=== PATIENT | female | born 1930 | race Caucasian/White ===

== ENCOUNTER 2020-01-13 09:05 | Inpatient (IN) ==
[2020-01-13 09:21] VITALS: BMI 23.0
[2020-01-13 10:06] LABS: BASOPHILS # (AUTO) 0.1 X10^3/uL (0.0-0.1); EOSINOPHILS # (AUTO) 0.1 x10^3/uL (0.0-0.2); EOSINOPHILS % (AUTO) 0.7 % (0.9-2.9); HEMATOCRIT 36.1 % (36.0-47.0); HEMOGLOBIN 11.7 g/dL (12.0-16.0); LYMPHOCYTES # (AUTO) 1.4 X10^3/uL (1.3-2.9); LYMPHOCYTES % (AUTO) 13.8 % (21.0-51.0); MEAN CORPUSCULAR HEMOGLOBIN 27.8 pg (27.0-34.0); MEAN CORPUSCULAR HGB CONC 32.4 g/dL (33.0-35.0); MEAN CORPUSCULAR VOLUME 85.6 fL (80.0-100.0); MONOCYTES # (AUTO) 0.8 x10^3/uL (0.3-0.8); NEUTROPHILS # (AUTO) 7.8 x10^3/uL (2.2-4.8); NEUTROPHILS % (AUTO) 76.5 % (42.0-75.0); PLATELET COUNT 227 X10^3/uL (150.0-450.0); RED BLOOD COUNT 4.22 X10^6/uL (3.5-5.4); RED CELL DISTRIBUTION WIDTH 14.9 % (11.6-16.5); WHITE BLOOD COUNT 10.1 X10^3/uL (3.6-10.0)
--- NOTE | 2020-01-13 10:14 | RAD ---
CHEST, 1 VIEWHISTORY: SOB, SORE THROAT, COUGH SINCE CARDIOVERSION YESTERDAYStudy: Single view of the chest.Comparison:NoneFindings:Cardiomegaly.Bilateral pulmonary vascular congestion with some asymmetr ic right-sided edema and trace bilateral effusions. Osseous structures demonstrate no acute abnormali ty.IMPRESSION:1. Cardiomegaly, edema and trace bilateral effusions.Electronically signed by: JANE RAM (Jan 13, 2020 10:13:39)
[2020-01-13 10:23] LABS: BLOOD UREA NITROGEN 21 mg/dL (7-18); CALCIUM 8.4 mg/dL (8.5-10.1); CARBON DIOXIDE 20.9 mmol/L (21-32); CHLORIDE 102 mmol/L (98-107); COR NA(FOR HYPERGLY) 135 mmol/L (136-145); CREATININE 1.09 mg/dL (0.55-1.02); SODIUM 135 mmol/L (136-145); TROPONIN I 0.33 ng/mL (0-1.5); eGFR NON BLACK RACES 50 (>60)
[2020-01-13 10:28] LABS: ALANINE AMINOTRANSFERASE 24 Units/L (12-78); ALBUMIN 3.2 g/dL (3.4-5.0); ALKALINE PHOSPHATASE 85 Units/L (46-116); ASPARTATE AMINO TRANSFERASE 23 Units/L (15-37); CKMB % 4.4 % (<4); CREATINE KINASE 70 Units/L (26-192); CREATINE KINASE MB 3.1 ng/mL (0-4.0); TOTAL PROTEIN 6.9 g/dL (6.4-8.2)
--- NOTE | 2020-01-13 10:39 | DR.SOBA ---
HPI Time Seen Time Seen by Provider: 01/13/20 09:40 Primary Care Physician Primary Care Physician: CELINA HPI Comment HPI Comment: PATIENT IS 89YR OLD FEMALE IN ER IN RESPIRATORY DISTRESS AND OXYGEN DESATURATION NOTED. SHE DID NOT SLEEP GOOD LAST NIGHT DUE TO RESPIRATORY DISTRESS. SHE IS WEAK. DENIES FEVER. COUGH IS SLIGHTLY PRODUCTIVE, CLEAR SPUTUM. REST OF HISTORY BELOW. THROAT PAIN IS SORENESS 7/10 AND RADIATES TO LOWER JAW. DENIES SIMILAR PAIN PREVIOUSLY. Complaints Chief Complaint Doctors Comments: INCREASING SOB, SORETHROAT, COUGHING, WEAKNESS SINCE YESTERDAY AFTER CARDIOVERSION FOR A FIB AND TRANS ESOPHAGIA ECHOCARDIOGRAM WAS DONE. SHE IS BEING COUGHING AND HAVING THROAT PAIN. SHE DID HAVE TUBE IN HER THROAT DURING PROCEDURE. Chief Complaint:: PT C/O SHORTNESS OF BREATH, SORE THROAT, WEAKNESS AND COUGHING THAT STARTED YESTERDAY AFTERNOON. PATIENT STATES SHE HAD A CARDIOVERSION DONE YESTERDAY AROUND 11AM AND THROUGHOUT THE AFTERNOON THE SYMPTOMS HAVE JUST BEGAN TO WORSEN. PT STAETS SHE HAS BEEN UP ALL NIGHT WITH THE SHORTNESS OF BREATH, SORE THROAT AND COUGHING. COVID-19 Coronavirus risk:travel/contact w/high risk person: No Has patient experienced Coronavirus symptoms: Yes Coronavirus symptoms experienced: Coughing and Shortness of Breath Reviewed Nurses Notes Reviewed: Yes Source History Provided: Patient Mode of Arrival Mode of Arrival: Wheelchair Timing Onset of Chief Complaint: 01/12/20 Duration Duration: Days Context Onset:: At Rest PE Risk Factors:: None History of:: None Prehospital Care:: O2 Modifying Factors Worsens:: Exertion and Lying Flat Improves:: Inhaler, Rest and Sitting Up Associated Signs and Symptoms Associated Signs and Symptoms: Cough, Nasal Congestion, Sore Throat and Chest Pain (TIGHTNESS.) If Chest Pain Quality: Other (SORENESS, TIGHTNESS.) Location: Substernal If Cough Cough: Nonproductive and White PMH PMH Past Medical History: Yes Past Medical History: Arthritis, Coronary Artery Disease, Dyslipidemia, GERD, Hypertension and Hypothyroidism Past Medical History Comment: AFIB, GI BLEED, Past Surgical History: Yes Surgical History: Angioplasty/Stents, CABG/Valve Surgery and Ortho Surgery Past Surgical History Comment: LTKA Family History History of Family Medical Conditions: No Social History Does any household member use tobacco: No Alcohol Use: None Do you use any recreational Drugs:: No Lives With: Alone Lives Where: Home Travel Risk Coronavirus risk:travel/contact w/high risk person: No Has patient experienced Coronavirus symptoms: Yes Coronavirus symptoms experienced: Coughing and Shortness of Breath Infectious screening In the last 2 months have you had wt loss of >10#?: NO Have you had fever, night sweats or hemotysis?: No Have you traveled outside the country in the last 6 months?: No Isolation: Droplet ROS Review of Systems Constitutional: See HPI, Weakness and Fatigue; negative Fever Eyes: No Symptoms Reported and See HPI; negative Blurred Vision and Diplopia ENTM: See HPI, Nose Discharge, Nose Congestion and Throat Pain; negative Ear Pain Respiratoy: See HPI, Productive Cough, Short of Breath and Wheezing Cardiovascular: See HPI, Chest Pain, Edema and Palpitations Gastrointestinal/Abdominal: No Symptoms Reported, See HPI and Food Intolerance; negative Abdominal Pain, Diarrhea, Nausea and Vomiting Genitourinary: No Symptoms Reported and See HPI; negative Dysuria, Frequency and Hematuria Neurological: See HPI, Headache, Weakness and Dizziness Musculoskeletal: See HPI, Back Pain and Muscle Pain Integumentary: See HPI and Dryness; negative Change in Color, Rash and Juandice Hematologic/Lymphatic: No Symptoms Reported and See HPI; negative Easy Bleeding, Easy Bruising and Swollen Glands Endocrine: No Symptoms Reported Psychiatric: No Symptoms Reported and See HPI All Other Systems: Reviewed and Negative PE Vital Signs Vitals: Temperature 98.4 F Pulse Rate [Left Radial] 106 Pulse Rate 79 Respiratory Rate 18 Blood Pressure [Left Arm] 141/74 Blood Pressure 133/81 O2 Sat by Pulse Oximetry 99 General Limitations: No Limitations General Appearance: Alert and In Distress Head Head Exam: Normal Inspection and Atraumatic Eyes Eye exam: Normal Appearance and PERRL; negative Scleral Icterus and Conjunctival Injection ENT ENT Exam: Normal External Ear Exam and TM's Normal Bilaterally; negative Normal Oropharynx Neck Neck Exam: Normal Inspection and Trachea Midline; negative Tenderness and Lymphadenopathy Chest Chest Inspection: Normal Inspection and Symmetric Chest Wall Rise; negative Tenderness Respiratory Respiratory Exam: Normal Lung Sounds Bilat and Chest Wall Tenderness; negative Accessory Muscle Use and Respiratory Distress Respiratory Exam: Bilateral: Wheezing and Bilateral: Rhonchi and Lower: Wheezing and Lower: Rhonchi Cardiovascular Cardiovascular Exam: Regular Rate, Normal Rhythm and Normal Heart Sounds; negative Systolic Murmur and Diastolic Murmur Abdominal Exam Abdominal Exam: Normal Inspection, Normal Bowel Sounds and Soft; negative Tenderness Extremities Extremities Exam: Normal Inspection and Normal Capillary Refill; negative Ten derness Back Back Exam: Normal Inspection; negative Tenderness, (R) CVA Tenderness and (L) CVA Tenderness Neurologic Neurological Exam: Alert, Oriented X3 and CN II-XII Intact; negative Motor Sensory Deficit Psychiatric Psychiatric Exam: Normal Affect and Normal Mood Skin Skin Exam: Dry MDM Differential Diagnosis Differential Diagnosis: Bronchitis, CHF, Dysrhythmia, Hyponatremia, Mycardial Infarction, Pneumonia, Pneumothorax, Respiratory Insufficiency and URI COURSE Treatment Treatment: SEE ORDERS. LASIX 40MG IV, AMIODARON 400MG PO, ELIQUIS 2.5MG PO AND ROCEPHIN 1GM IVPB IN ER. Reevaluation 1st: Improved (SOB IMPROVING.) Consultation Consultation Comments: DISCUSSED PATIENT WITH DR. ROMERO. HE WILL ADMIT PATIENT. 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 PROCEDURE DONE CAN ALTER CARDIAC ENZYMES. WILL NOT TRASFER PATIENT AT THIS TIME. Education/Counseling Education/Counseling: Patient Educated On: Diagnosis ROR Labs Reviewed Laboratory Results Reviewed?: Yes Result Diagrams: 01/16/20 05:55 01/16/20 19:30 Laboratory: 01/13/20 11:59 Urine,Clean Catch Urine Culture - Final WBC 7.9 X10^3/uL (3.6-10.0) 01/15/20 06:20 RBC 4.43 X10^6/uL (3.5-5.4) 01/15/20 06:20 Hgb 12.3 g/dL (12.0-16.0) 01/15/20 06:20 Hct 38.0 % (36.0-47.0) 01/15/20 06:20 MCV 85.8 fL (80.0-100.0) 01/15/20 06:20 MCH 27.8 pg (27.0-34.0) 01/15/20 06:20 MCHC 32.4 g/dL (33.0-35.0) L 01/15/20 06:20 RDW 14.9 % (11.6-16.5) 01/15/20 06:20 Plt Count 236 X10^3/uL (150.0-450.0) 01/15/20 06:20 MPV 8.2 fL (7.4-11.0) 01/15/20 06:20 Neut % (Auto) 53.3 % (42.0-75.0) 01/15/20 06:20 Lymph % (Auto) 27.1 % (21.0-51.0) 01/15/20 06:20 [place] % (Auto) 12.2 % (0.0-13.0) 01/15/20 06:20 Eos % (Auto) 6.3 % (0.9-2.9) H 01/15/20 06:20 Baso % (Auto) 1.1 % (0.2-1.0) H 01/15/20 06:20 Neut # (Auto) 4.2 x10^3/uL (2.2-4.8) 01/15/20 06:20 Lymph # (Auto) 2.1 X10^3/uL (1.3-2.9) 01/15/20 06:20 [place] # (Auto) 1.0 x10^3/uL (0.3-0.8) H 01/15/20 06:20 Eos # (Auto) 0.5 x10^3/uL (0.0-0.2) H 01/15/20 06:20 Baso # (Auto) 0.1 X10^3/uL (0.0-0.1) 01/15/20 06:20 Absolute Nucleated RBC 0.0 /100WBC 01/15/20 06:20 PT 17.3 SECONDS (11.8-14.3) 01/14/20 06:00 INR Target Range - 01/14/20 06:00 INR 1.46 (0.8-1.3) H 01/14/20 06:00 APTT 44.5 SECONDS (22.9-36.5) H 01/14/20 06:00 PTT Comment - 01/14/20 06:00 Sample Site Left brachial 01/13/20 10:11 ABG pH 7.450 (7.35-7.45) 01/13/20 10:11 ABG pCO2 30.0 mmHg (35.0-45.0) L 01/13/20 10:11 ABG pO2 74.0 mmHg (80.0-100.0) L 01/13/20 10:11 ABG HCO3 20.9 mmol/L (22-26) L 01/13/20 10:11 ABG O2 Saturation 95.0 % (90-100) 01/13/20 10:11 ABG Base Excess -2.2 mmol/L (-2.0-2.0) L 01/13/20 10:11 Himanshu Test Na 01/13/20 10:11 A-a Gradient 38.0 mmHg 01/13/20 10:11 FiO2 21.0 01/13/20 10:11 Blood Gas Comments Laurie well cb 01/13/20 10:11 Sodium 139 mmol/L (136-145) 01/15/20 06:20 Corrected Sodium TNP 01/15/20 06:20 Potassium 3.5 mmol/L (3.5-5.1) 01/15/20 06:20 Chloride 100 mmol/L (98-107) 01/15/20 06:20 Carbon Dioxide 27.6 mmol/L (21-32) 01/15/20 06:20 BUN 21 mg/dL (7-18) H 01/15/20 06:20 Creatinine 1.35 mg/dL (0.55-1.02) H 01/15/20 06:20 Est GFR (MDRD) Af Amer 48 (>60) L 01/15/20 06:20 Est GFR (MDRD) Non-Af 39 (>60) L 01/15/20 06:20 Glucose 105 mg/dL (65-99) H 01/15/20 06:20 Calcium 8.8 mg/dL (8.5-10.1) 01/15/20 06:20 Corrected Calcium TNP 01/15/20 06:20 Magnesium 1.6 mg/dL (1.7-2.9) L 01/15/20 06:20 Ferritin 44 ng/mL (8-252) 01/13/20 09:55 Total Bilirubin 0.60 mg/dL (0.2-1.0) 01/15/20 06:20 AST 23 Units/L (15-37) 01/15/20 06:20 ALT 26 Units/L (12-78) 01/15/20 06:20 Alkaline Phosphatase 89 Units/L (46-116) 01/15/20 06:20 Creatine Kinase 62 Units/L (26-192) 01/13/20 23:15 CK-MB (CK-2) 3.5 ng/mL (0-4.0) 01/13/20 23:15 CK/CKMB % Calc 5.7 % (<4) 01/13/20 23:15 Troponin I 0.06 ng/mL (0-1.5) 01/13/20 23:15 C-Reactive Protein 27.90 mg/L (0-3.0) H 01/13/20 09:55 Total Protein 7.7 g/dL (6.4-8.2) 01/15/20 06:20 Albumin 3.4 g/dL (3.4-5.0) 01/15/20 06:20 Globulin 4.3 g/dL (2.5-4.5) 01/15/20 06:20 Albumin/Globulin Ratio 0.8 Ratio (1.1-2.1) L 01/15/20 06:20 Specimen Type Clean catch urine 01/13/20 11:59 Urine Color Pale yellow (YELLOW) 01/13/20 11:59 Urine Appearance Slightly hazy (CLEAR) 01/13/20 11:59 Urine pH 6.0 (5.0 - 8.0) 01/13/20 11:59 Ur Specific [place] 1.010 (1.000-1.030) 01/13/20 11:59 Urine Protein Negative (NEGATIVE) 01/13/20 11:59 Urine Glucose (UA) Negative (NEGATIVE) 01/13/20 11:59 Urine Ketones Negative (NEGATIVE) 01/13/20 11:59 Urine Occult Blood Negative (NEGATIVE) 01/13/20 11:59 Urine Nitrite Negative (NEGATIVE) 01/13/20 11:59 Urine Bilirubin Negative (NEGATIVE) 01/13/20 11:59 Urine Urobilinogen Normal (NORMAL) 01/13/20 11:59 Ur Leukocyte Esterase 3+ (NEGATIVE) 01/13/20 11:59 Urine RBC 0-2 /HPF (0-3) 01/13/20 11:59 Urine WBC 10-20 /HPF (0-5) A 01/13/20 11:59 Ur Squamous Epith Cells Rare /HPF (NEGATIVE) 01/13/20 11:59 Urine Bacteria Trace /HPF (NEGATIVE) 01/13/20 11:59 Ur Culture Indicated? Yes/culture set up 01/13/20 11:59 SARS-CoV-2 (PCR) Negative (NEGATIVE) 01/13/20 12:20 XRAY XRAY Interpreted by: Radiologist (REPORT NOTED AND DISCUSSED WITH PATIENT AND FAMILY.) and Self (AGREE WITH REPORT.) EKG Rate: 83 Advance: Normal Rhythm: PACs Block: None Hypertrophy: None ST: Nonsp Opioid Opioid Risk Tool Age (Odell box if 16-45): No History of Preadolescent Sexual Abuse: No Total: 0 Total Score Risk Category: Low Risk Copyright: [facility] predicting aberrant behaviors Diagnosis Discharge Problem: Elevated troponin, Acute respiratory distress CHF (congestive heart failure) Qualifiers: Heart failure type: unspecified Heart failure chronicity: acute on chronic Qualified Code(s): I50.9 - Heart failure, unspecified Pulmonary edema Qualifiers: Chronicity: acute Qualified Code(s): J81.0 - Acute pulmonary edema UTI (urinary tract infection) Qualifiers: Urinary tract infection type: site unspecified Hematuria presence: with hematuria Qualified Code(s): N39.0 - Urinary tract infection, site not specified Instructions Instructions: Fall Prevention in the Home, Adult, Gkce-nw-[id number] Transesophageal Echocardiogram, [id number] Cardiac-Specific Troponin I and T Test Hypertension, Noha-hy-Gfya Heart Failure, Hgqq-[id number] Pulmonary Edema, Ntky-[id number] Forms: Precautions for COVID19 Patient Portal Social Distancing
[2020-01-13] MEDS ORDERED: LASIX IVP ONE ×2 (10:41→10:50)
[2020-01-13 10:59] LABS: ABG BASE EXCESS -2.2 mmol/L (-2.0-2.0); ABG HCO3 20.9 mmol/L (22-26)
[2020-01-13] MEDS ORDERED: CORDARONE INJ 150 MG VIAL IVP ONE (11:32)
[2020-01-13] MEDS ORDERED: ELIQUIS PO ONE (11:37)
[2020-01-13] MEDS ORDERED: CORDARONE TAB 200 MG PO ONE (11:37)
[2020-01-13 12:08] LABS: BILIRUBIN,URINE NEGATIVE (NEGATIVE); BLOOD/HEMOGLOBIN,URINE NEGATIVE (NEGATIVE); GLUCOSE, URINE NEGATIVE (NEGATIVE); KETONES,URINE NEGATIVE (NEGATIVE); LEUKOCYTE ESTERASE ,URINE 3+ (NEGATIVE); NITRITES,URINE NEGATIVE (NEGATIVE); PROTEIN,URINE NEGATIVE (NEGATIVE); UROBILINOGEN,URINE NORMAL (NORMAL)
[2020-01-13 12:16] LABS: APPEARANCE,URINE SLIGHTLY HAZY (CLEAR); COLOR,URINE PALE YELLOW (YELLOW)
[2020-01-13 12:17] LABS: BACTERIA,URINE TRACE /HPF (NEGATIVE); RBC,URINE 0-2 /HPF (0-3); SQUAMOUS EPITHELIAL CELL,UR RARE /HPF (NEGATIVE)
[2020-01-13] MEDS ORDERED: ROCEPHIN VIAL 1 GRAM IV ONE (12:49)
[2020-01-13 13:38] LABS: CKMB % 4.2 % (<4); CREATINE KINASE MB 3.6 ng/mL (0-4.0); TROPONIN I 0.36 ng/mL (0-1.5)
[2020-01-13] MEDS ORDERED: ROCEPHIN VIAL 1 GRAM ONE (14:37)
[2020-01-13] MEDS ORDERED: NS 100 ML IV 100 ML IV ONE (14:37)
[2020-01-13] MEDS: ROCEPHIN VIAL 1 GRAM 1 G in NS 100 ML IV + SPIKE MINIBAG* 100 ML IV SCH (14:59)
[2020-01-13] MEDS ORDERED: RESTORIL CAP 15 MG PO PRN (16:33)
[2020-01-14 00:20] LABS: CKMB % 5.7 % (<4); CREATINE KINASE MB 3.5 ng/mL (0-4.0); TROPONIN I 0.06 ng/mL (0-1.5)
[2020-01-14 06:29] LABS: BASOPHILS # (AUTO) 0.1 X10^3/uL (0.0-0.1); BASOPHILS % (AUTO) 1.3 % (0.2-1.0); EOSINOPHILS # (AUTO) 0.4 x10^3/uL (0.0-0.2); HEMATOCRIT 34.6 % (36.0-47.0); HEMOGLOBIN 11.2 g/dL (12.0-16.0); LYMPHOCYTES # (AUTO) 1.7 X10^3/uL (1.3-2.9); LYMPHOCYTES % (AUTO) 25.8 % (21.0-51.0); MEAN CORPUSCULAR HEMOGLOBIN 27.5 pg (27.0-34.0); MEAN CORPUSCULAR HGB CONC 32.2 g/dL (33.0-35.0); MEAN CORPUSCULAR VOLUME 85.4 fL (80.0-100.0); MEAN PLATELET VOLUME 8.2 fL (7.4-11.0); MONOCYTES # (AUTO) 0.7 x10^3/uL (0.3-0.8); MONOCYTES % (AUTO) 10.4 % (0.0-13.0); NEUTROPHILS # (AUTO) 3.7 x10^3/uL (2.2-4.8); NEUTROPHILS % (AUTO) 56.5 % (42.0-75.0); PLATELET COUNT 204 X10^3/uL (150.0-450.0); RED BLOOD COUNT 4.06 X10^6/uL (3.5-5.4); RED CELL DISTRIBUTION WIDTH 14.9 % (11.6-16.5); WHITE BLOOD COUNT 6.6 X10^3/uL (3.6-10.0)
[2020-01-14 06:49] LABS: ALANINE AMINOTRANSFERASE 25 Units/L (12-78); ALBUMIN 3.1 g/dL (3.4-5.0); ALKALINE PHOSPHATASE 79 Units/L (46-116); ASPARTATE AMINO TRANSFERASE 19 Units/L (15-37); BLOOD UREA NITROGEN 20 mg/dL (7-18); CALCIUM 8.6 mg/dL (8.5-10.1); CARBON DIOXIDE 27.4 mmol/L (21-32); CHLORIDE 105 mmol/L (98-107); COR CA(FOR HYPOALB) 9.3 mg/dL (8.5-10.1); CREATININE 1.27 mg/dL (0.55-1.02); MAGNESIUM 1.7 mg/dL (1.7-2.9); SODIUM 141 mmol/L (136-145); TOTAL PROTEIN 6.8 g/dL (6.4-8.2); eGFR NON BLACK RACES 42 (>60)
[2020-01-14] MEDS ORDERED: NS 500 ML IV 500 ML IV ONE (08:47)
[2020-01-14] MEDS ORDERED: LASIX IVP SCH (09:25)
[2020-01-14] MEDS: CORDARONE TAB 200 MG PO SCH (09:48)
[2020-01-14] MEDS: ROCEPHIN VIAL 1 GRAM 1 G in NS 100 ML IV + SPIKE MINIBAG* 100 ML IV SCH (09:49)
[2020-01-14] MEDS: LASIX IVP SCH ×2 (09:51→18:26)
--- NOTE | 2020-01-14 10:56 | RAD ---
HISTORYCHFSTUDYCHEST, 1 VIEWCOMPARISONOne-view chest January 13, 2020FINDINGSThe trachea is midline. The cardiac silhouette is enlarged but stable in size. The vascular congestion and central interstitial edema has improved when compared to the last film January 12. There is minimal residual interstitial edema in the lung bases. The bony thorax is unremarkable.IMPRESSIONCardiomegaly status post sternotomy stable compared to yesterdays film but there is been significant improvement in the vascular congestion and interstitial edema compared to yesterdays film.Electronically signed by: THEODORE AUSTIN (Jan 14, 2020 10:55:56)
[2020-01-14] MEDS: ELIQUIS PO SCH ×2 (11:05→20:33)
[2020-01-14] MEDS: RHINOCORT ALLERGY NASAL SPRAY ENOSTRIL SCH (11:05)
[2020-01-15 06:38] LABS: BASOPHILS # (AUTO) 0.1 X10^3/uL (0.0-0.1); BASOPHILS % (AUTO) 1.1 % (0.2-1.0); EOSINOPHILS # (AUTO) 0.5 x10^3/uL (0.0-0.2); EOSINOPHILS % (AUTO) 6.3 % (0.9-2.9); HEMOGLOBIN 12.3 g/dL (12.0-16.0); LYMPHOCYTES # (AUTO) 2.1 X10^3/uL (1.3-2.9); LYMPHOCYTES % (AUTO) 27.1 % (21.0-51.0); MEAN CORPUSCULAR HEMOGLOBIN 27.8 pg (27.0-34.0); MEAN CORPUSCULAR HGB CONC 32.4 g/dL (33.0-35.0); MEAN CORPUSCULAR VOLUME 85.8 fL (80.0-100.0); MEAN PLATELET VOLUME 8.2 fL (7.4-11.0); MONOCYTES % (AUTO) 12.2 % (0.0-13.0); NEUTROPHILS # (AUTO) 4.2 x10^3/uL (2.2-4.8); NEUTROPHILS % (AUTO) 53.3 % (42.0-75.0); PLATELET COUNT 236 X10^3/uL (150.0-450.0); RED BLOOD COUNT 4.43 X10^6/uL (3.5-5.4); RED CELL DISTRIBUTION WIDTH 14.9 % (11.6-16.5); WHITE BLOOD COUNT 7.9 X10^3/uL (3.6-10.0)
[2020-01-15 06:58] LABS: ALANINE AMINOTRANSFERASE 26 Units/L (12-78); ALBUMIN 3.4 g/dL (3.4-5.0); ALKALINE PHOSPHATASE 89 Units/L (46-116); ASPARTATE AMINO TRANSFERASE 23 Units/L (15-37); BLOOD UREA NITROGEN 21 mg/dL (7-18); CALCIUM 8.8 mg/dL (8.5-10.1); CARBON DIOXIDE 27.6 mmol/L (21-32); CHLORIDE 100 mmol/L (98-107); CREATININE 1.35 mg/dL (0.55-1.02); SODIUM 139 mmol/L (136-145); TOTAL PROTEIN 7.7 g/dL (6.4-8.2); eGFR NON BLACK RACES 39 (>60)
--- NOTE | 2020-01-15 07:30 | RAD ---
HISTORYCHF respiratory distressSTUDYPortable AP [id number] stable cardiac enlargement with sternal wires. The lungs are now essentially clear with only slight residual vascular congestion. There is no new segmental or lobar consolidation or recurrent pulmonary edema.IMPRESSIONAdditional improvement in pulmonary aeration. No new abnormality noted.Electronically signed by: DIAMANTE DONATO (Jan 15, 2020 07:29:14)
[2020-01-15] MEDS: CORDARONE TAB 200 MG PO SCH (09:19)
[2020-01-15] MEDS: ELIQUIS PO SCH ×2 (09:20→21:16)
[2020-01-15] MEDS ORDERED: LOPRESSOR INJ 5 MG AMP IVP ONE (09:26)
[2020-01-15] MEDS ORDERED: LOPRESSOR INJ 5 MG AMP ONE (09:28)
[2020-01-15] MEDS: ROCEPHIN VIAL 1 GRAM 1 G in NS 100 ML IV + SPIKE MINIBAG* 100 ML IV SCH (09:31)
[2020-01-15] MEDS: LASIX IVP SCH (09:31)
[2020-01-15] MEDS: RHINOCORT ALLERGY NASAL SPRAY ENOSTRIL SCH (09:39)
[2020-01-15] MEDS ORDERED: ATIVAN TAB 0.5 MG PO ONE (10:04)
[2020-01-15] MEDS ORDERED: ATIVAN TAB 0.5 MG ONE (10:11)
--- NOTE | 2020-01-15 10:28 | PCM.PROG ---
Progress Note Progress Note for Day of Date of Exam: 01/15/20 Subjective Subjective: Pt is a 89 yo f pmhx CABGx3(1983), Atrial fibrillation, Hypothyroidism, admitted for CHF exacerbation. Yesterday she was given lasix and had good urinary output with significant improvement in respiratory status and CXR show significant improvement in aeration. Echo:EF 61%, moderate mitral r egurg. Plan was for possible discharge, however she began having an uncomfortable feeling in her chest and felt palpitations. Ekg ordered that showed atrial fibrillation. She had not received her morning amiodarone dose and was given that along with IV metoprolol 5mg. Magnesium level was low, will r eplete per protocol. Home medications restarted included synthroid and atenolol. Labs/imaging:Wbc 7.8, Hgb 12.3, Plt 236, Na 139, K 3.5, Cr 1.35, Gluc 105. Will continue to monitor and follow up labs/imaging in the morning. Past Medical Family Social History Past Med/Fam/Surg Hx: No changes since H&P Allergies: Allergies nickel Allergy (Verified 01/12/20 11:35) silver Allergy (Verified 01/12/20 11:35) Review of Systems ROS: No change since H&P Vital Signs and I&O's Vital Signs: Temperature 97.7 F Pulse Rate [Left Radial] 75 Pulse Rate 79 Respiratory Rate 20 Blood Pressure [Left Arm] 132/75 Blood Pressure 133/81 O2 Sat by Pulse Oximetry 98 Intake and Output: Intake & Output 01/12/20 01/13/20 01/14/20 01/15/20 23:59 23:59 23:59 23:59 Intake Total 310 / 310 1250 / 1250 70 / 70 Output Total 700 / 700 Balance -390 / -390 1250 / 1250 70 / 70 Physical Exam Oriented: Normal Eyes: Normal Ear: Normal Nose: Normal Throat: Normal Respiratory: Normal Cardiovascular: Tachycardia and Irregular Auscultation: Bowel Sounds: Normal Palpation: Normal Tenderness: Normal Skin: Normal Musculoskeletal: Normal Psychiatric: Anxiety Speech Pattern: Clear and Appropriate Laboratory and Diagnostics Result Diagrams: 01/15/20 06:20 01/15/20 06:20 Labs: 01/13/20 11:59 Urine,Clean Catch Urine Culture - Final Laboratory WBC 7.9 X10^3/uL (3.6-10.0) 01/15/20 06:20 RBC 4.43 X10^6/uL (3.5-5.4) 01/15/20 06:20 Hgb 12.3 g/dL (12.0-16.0) 01/15/20 06:20 Hct 38.0 % (36.0-47.0) 01/15/20 06:20 MCV 85.8 fL (80.0-100.0) 01/15/20 06:20 MCH 27.8 pg (27.0-34.0) 01/15/20 06:20 MCHC 32.4 g/dL (33.0-35.0) L 01/15/20: RDW 14.9 % (11.6-16.5) 01/15/20 06:20 Plt Count 236 X10^3/uL (150.0-450.0) 01/15/20 06:20 MPV 8.2 fL (7.4-11.0) 01/15/20 06:20 Neut % (Auto) 53.3 % (42.0-75.0) 01/15/20 06:20 Lymph % (Auto) 27.1 % (21.0-51.0) 01/15/20 06:20 [place] % (Auto) 12.2 % (0.0-13.0) 01/15/20 06:20 Eos % (Auto) 6.3 % (0.9-2.9) H 01/15/20 06:20 Baso % (Auto) 1.1 % (0.2-1.0) H 01/15/20 06:20 Neut # (Auto) 4.2 x10^3/uL (2.2-4.8) 01/15/20 06:20 Lymph # (Auto) 2.1 X10^3/uL (1.3-2.9) 01/15/20 06:20 [place] # (Auto) 1.0 x10^3/uL (0.3-0.8) H 01/15/20 06:20 Eos # (Auto) 0.5 x10^3/uL (0.0-0.2) H 01/15/20 06:20 Baso # (Auto) 0.1 X10^3/uL (0.0-0.1) 01/15/20 06:20 Absolute Nucleated RBC 0.0 /100WBC 01/15/20 06:20 PT 17.3 SECONDS (11.8-14.3) 01/14/20 06:00 INR Target Range - 01/14/20 06:00 INR 1.46 (0.8-1.3) H 01/14/20 06:00 APTT 44.5 SECONDS (22.9-36.5) H 01/14/20 06:00 PTT Comment - 01/14/20 06:00 Sample Site Left brachial 01/13/20 10:11 ABG pH 7.450 (7.35-7.45) 01/13/20 10:11 ABG pCO2 30.0 mmHg (35.0-45.0) L 01/13/20 10:11 ABG pO2 74.0 mmHg (80.0-100.0) L 01/13/20 10:11 ABG HCO3 20.9 mmol/L (22-26) L 01/13/20 10:11 ABG O2 Saturation 95.0 % (90-100) 01/13/20 10:11 ABG Base Excess -2.2 mmol/L (-2.0-2.0) L 01/13/20 10:11 Himanshu Test Na 01/13/20 10:11 A-a Gradient 38.0 mmHg 01/13/20 10:11 FiO2 21.0 01/13/20 10:11 Blood Gas Comments Laurie well cb 01/13/20 10:11 Sodium 139 mmol/L (136-145) 01/15/20 06:20 Corrected Sodium TNP 01/15/20 06:20 Potassium 3.5 mmol/L (3.5-5.1) 01/15/20 06:20 Chloride 100 mmol/L (98-107) 01/15/20 06:20 Carbon Dioxide 27.6 mmol/L (21-32) 01/15/20 06:20 BUN 21 mg/dL (7-18) H 01/15/20 06:20 Creatinine 1.35 mg/dL (0.55-1.02) H 01/15/20 06:20 Est GFR (MDRD) Af Amer 48 (>60) L 01/15/20 06:20 Est GFR (MDRD) Non-Af 39 (>60) L 01/15/20 06:20 Glucose 105 mg/dL (65-99) H 01/15/20 06:20 Calcium 8.8 mg/dL (8.5-10.1) 01/15/20 06:20 Corrected Calcium TNP 01/15/20 06:20 Magnesium 1.6 mg/dL (1.7-2.9) L 01/15/20 06:20 Ferritin 44 ng/mL (8-252) 01/13/20 09:55 Total Bilirubin 0.60 mg/dL (0.2-1.0) 01/15/20 06:20 AST 23 Units/L (15-37) 01/15/20 06:20 ALT 26 Units/L (12-78) 01/15/20 06:20 Alkaline Phosphatase 89 Units/L (46-116) 01/15/20 06:20 Creatine Kinase 62 Units/L (26-192) 01/13/20 23:15 CK-MB (CK-2) 3.5 ng/mL (0-4.0) 01/13/20 23:15 CK/CKMB % Calc 5.7 % (<4) 01/13/20 23:15 Troponin I 0.06 ng/mL (0-1.5) 01/13/20 23:15 C-Reactive Protein 27.90 mg/L (0-3.0) H 01/13/20 09:55 Total Protein 7.7 g/dL (6.4-8.2) 01/15/20 06:20 Albumin 3.4 g/dL (3.4-5.0) 01/15/20 06:20 Globulin 4.3 g/dL (2.5-4.5) 01/15/20 06:20 Albumin/Globulin Ratio 0.8 Ratio (1.1-2.1) L 01/15/20 06:20 Specimen Type Clean catch urine 01/13/20 11:59 Urine Color Pale yellow (YELLOW) 01/13/20 11:59 Urine Appearance Slightly hazy (CLEAR) 01/13/20 11:59 Urine pH 6.0 (5.0 - 8.0) 01/13/20 11:59 Ur Specific [place] 1.010 (1.000-1.030) 01/13/20 11:59 Urine Protein Negative (NEGATIVE) 01/13/20 11:59 Urine Glucose (UA) Negative (NEGATIVE) 01/13/20 11:59 Urine Ketones Negative (NEGATIVE) 01/13/20 11:59 Urine Occult Blood Negative (NEGATIVE) 01/13/20 11:59 Urine Nitrite Negative (NEGATIVE) 01/13/20 11:59 Urine Bilirubin Negative (NEGATIVE) 01/13/20 11:59 Urine Urobilinogen Normal (NORMAL) 01/13/20 11:59 Ur Leukocyte Esterase 3+ (NEGATIVE) 01/13/20 11:59 Urine RBC 0-2 /HPF (0-3) 01/13/20 11:59 Urine WBC 10-20 /HPF (0-5) A 01/13/20 11:59 Ur Squamous Epith Cells Rare /HPF (NEGATIVE) 01/13/20 11:59 Urine Bacteria Trace /HPF (NEGATIVE) 01/13/20 11:59 Ur Culture Indicated? Yes/culture set up 01/13/20 11:59 SARS-CoV-2 (PCR) Negative (NEGATIVE) 01/13/20 12:20 Plan (1) CHF (congestive heart failure): Status: Acute Qualifiers: Heart failure chronicity: acute on chronic Heart failure type: unspecified Qualified Code(s): I50.9 - Heart failure, unspecified (2) Pulmonary edema: Status: Acute Qualifiers: Chronicity: acute Qualified Code(s): J81.0 - Acute pulmonary edema
[2020-01-15] MEDS ORDERED: TENORMIN PO SCH (11:00)
[2020-01-15] MEDS ORDERED: ATIVAN TAB 0.5 MG PO SCH (11:00)
[2020-01-15] MEDS ORDERED: MAGNESIUM SULFATE 1 GRAM/100 mL PREMIX 1 GM/100 ML BAG IV PRN (11:47)
[2020-01-15] MEDS: SYNTHROID 50 mcg TAB PO SCH (14:15)
[2020-01-15] MEDS ORDERED: K-RIDER 10 MEQ/NS 100 ML 10 MEQ/100 ML BAG IV PRN (20:33)
[2020-01-15] MEDS ORDERED: KLOR-CON PO PRN (20:33)
[2020-01-15] MEDS ORDERED: POTASSIUM CHLORIDE LIQ 20 MEQ UDC PO PRN (20:33)
[2020-01-15] MEDS ORDERED: K-DUR TAB 20 MEQ PO PRN (20:33)
[2020-01-15] MEDS ORDERED: POTASSIUM CHL 60 MEQ/NS 0.45% 500 ML IV PRN (20:33)
[2020-01-15] MEDS ORDERED: POTASSIUM CHL 40 MEQ/NS 0.45% 500 ML IV PRN (20:33)
[2020-01-15] MEDS ORDERED: MICRO K EXTEN CAP 10 MEQ PO PRN (20:33)
[2020-01-15] MEDS: ATIVAN TAB 0.5 MG PO PRN (21:18)
[2020-01-16 06:23] LABS: BASOPHILS # (AUTO) 0.1 X10^3/uL (0.0-0.1); BASOPHILS % (AUTO) 1.1 % (0.2-1.0); EOSINOPHILS # (AUTO) 0.5 x10^3/uL (0.0-0.2); EOSINOPHILS % (AUTO) 7.9 % (0.9-2.9); HEMATOCRIT 37.3 % (36.0-47.0); HEMOGLOBIN 12.1 g/dL (12.0-16.0); LYMPHOCYTES # (AUTO) 1.7 X10^3/uL (1.3-2.9); LYMPHOCYTES % (AUTO) 29.6 % (21.0-51.0); MEAN CORPUSCULAR HEMOGLOBIN 27.7 pg (27.0-34.0); MEAN CORPUSCULAR HGB CONC 32.4 g/dL (33.0-35.0); MEAN CORPUSCULAR VOLUME 85.5 fL (80.0-100.0); MEAN PLATELET VOLUME 8.3 fL (7.4-11.0); MONOCYTES # (AUTO) 0.6 x10^3/uL (0.3-0.8); MONOCYTES % (AUTO) 10.2 % (0.0-13.0); NEUTROPHILS % (AUTO) 51.2 % (42.0-75.0); PLATELET COUNT 229 X10^3/uL (150.0-450.0); RED BLOOD COUNT 4.37 X10^6/uL (3.5-5.4); RED CELL DISTRIBUTION WIDTH 14.7 % (11.6-16.5); WHITE BLOOD COUNT 5.9 X10^3/uL (3.6-10.0)
[2020-01-16 06:51] LABS: ALANINE AMINOTRANSFERASE 21 Units/L (12-78); ALKALINE PHOSPHATASE 82 Units/L (46-116); ASPARTATE AMINO TRANSFERASE 20 Units/L (15-37); BLOOD UREA NITROGEN 21 mg/dL (7-18); CALCIUM 8.8 mg/dL (8.5-10.1); CARBON DIOXIDE 27.6 mmol/L (21-32); CHLORIDE 100 mmol/L (98-107); COR CA(FOR HYPOALB) 9.6 mg/dL (8.5-10.1); CREATININE 1.15 mg/dL (0.55-1.02); MAGNESIUM 2.6 mg/dL (1.7-2.9); SODIUM 136 mmol/L (136-145); eGFR NON BLACK RACES 47 (>60)
[2020-01-16] MEDS: LASIX PO SCH (09:21)
[2020-01-16] MEDS: ELIQUIS PO SCH ×2 (09:21→20:48)
[2020-01-16] MEDS: SYNTHROID 50 mcg TAB PO SCH (09:21)
[2020-01-16] MEDS: LOPRESSOR TAB 25 MG PO SCH ×2 (09:21→20:49)
[2020-01-16] MEDS: CORDARONE TAB 200 MG PO SCH (09:22)
[2020-01-16] MEDS: RHINOCORT ALLERGY NASAL SPRAY ENOSTRIL SCH (09:23)
--- NOTE | 2020-01-16 10:31 | PCM.PROG ---
Progress Note Progress Note for Day of Date of Exam: 01/16/20 Subjective Subjective: Pt is a 89 yo f pmhx CABGx3(1983), Atrial fibrillation, Hypothyroidism, admitted for CHF exacerbation. Yesterday, she had Afib w/ RVR on Ekg, felt chest discomfort and palpitations. Her home medications were restarted and she states it has helped but still has some palpitations. Her heart rate is fluctuating on telemetry this morning. Will stop her atenolol and change her to metoprolol tart 12.5mg BID. She is otherwise doing well and if rate controlled can likely be discharged soon. Labs/imaging:Wbc 5.9, Hgb 12.1, Plt 229, Na 136, K 3.3, Cr 1.15, Gluc 104. Mag 2.6. Will continue to monitor and follow up labs/imaging in the morning. Past Medical Family Social History Past Med/Fam/Surg Hx: No changes since H&P Allergies: Allergies nickel Allergy (Verified 01/12/20 11:35) silver Allergy (Verified 01/12/20 11:35) Review of Systems ROS: No change since H&P Vital Signs and I&O's Vital Signs: Temperature 98.1 F Pulse Rate [Left Radial] 93 Pulse Rate 79 Respiratory Rate 20 Blood Pressure [Left Arm] 122/85 Blood Pressure 133/81 O2 Sat by Pulse Oximetry 98 Intake and Output: Intake & Output 01/13/20 01/14/20 01/15/20 01/16/20 23:59 23:59 23:59 23:59 Intake Total 310 / 310 1250 / 1250 1340 / 1340 320 / 320 Output Total 700 / 700 Balance -390 / -390 1250 / 1250 1340 / 1340 320 / 320 Physical Exam Oriented: Normal Eyes: Normal Ear: Normal Nose: Normal Throat: Normal Respiratory: Normal Cardiovascular: Tachycardia and Irregular Auscultation: Bowel Sounds: Normal Tenderness: Normal Skin: Normal Musculoskeletal: Normal Psychiatric: Anxiety Speech Pattern: Clear and Appropriate Laboratory and Diagnostics Result Diagrams: 01/16/20 05:55 01/16/20 05:55 Labs: 01/13/20 11:59 Urine,Clean Catch Urine Culture - Final Laboratory WBC 5.9 X10^3/uL (3.6-10.0) 01/16/20 05:55 RBC 4.37 X10^6/uL (3.5-5.4) 01/16/20 05:55 Hgb 12.1 g/dL (12.0-16.0) 01/16/20 05:55 Hct 37.3 % (36.0-47.0) 01/16/20 05:55 MCV 85.5 fL (80.0-100.0) 01/16/20 05:55 MCH 27.7 pg (27.0-34.0) 01/16/20 05:55 MCHC 32.4 g/dL (33.0-35.0) L 01/16/20 05:55 RDW 14.7 % (11.6-16.5) 01/16/20 05:55 Plt Count 229 X10^3/uL (150.0-450.0) 01/16/20 05:55 MPV 8.3 fL (7.4-11.0) 01/16/20 05:55 Neut % (Auto) 51.2 % (42.0-75.0) 01/16/20 05:55 Lymph % (Auto) 29.6 % (21.0-51.0) 01/16/20 05:55 [place] % (Auto) 10.2 % (0.0-13.0) 01/16/20 05:55 Eos % (Auto) 7.9 % (0.9-2.9) H 01/16/20 05:55 Baso % (Auto) 1.1 % (0.2-1.0) H 01/16/20 05:55 Neut # (Auto) 3.0 x10^3/uL (2.2-4.8) 01/16/20 05:55 Lymph # (Auto) 1.7 X10^3/uL (1.3-2.9) 01/16/20 05:55 [place] # (Auto) 0.6 x10^3/uL (0.3-0.8) 01/16/20 05:55 Eos # (Auto) 0.5 x10^3/uL (0.0-0.2) H 01/16/20 05:55 Baso # (Auto) 0.1 X10^3/uL (0.0-0.1) 01/16/20 05:55 Absolute Nucleated RBC 0.1 /100WBC 01/16/20 05:55 PT 17.3 SECONDS (11.8-14.3) 01/14/20 06:00 INR Target Range - 01/14/20 06:00 INR 1.46 (0.8-1.3) H 01/14/20 06:00 APTT 44.5 SECONDS (22.9-36.5) H 01/14/20 06:00 PTT Comment - 01/14/20 06:00 Sample Site Left brachial 01/13/20 10:11 ABG pH 7.450 (7.35-7.45) 01/13/20 10:11 ABG pCO2 30.0 mmHg (35.0-45.0) L 01/13/20 10:11 ABG pO2 74.0 mmHg (80.0-100.0) L 01/13/20 10:11 ABG HCO3 20.9 mmol/L (22-26) L 01/13/20 10:11 ABG O2 Saturation 95.0 % (90-100) 01/13/20 10:11 ABG Base Excess -2.2 mmol/L (-2.0-2.0) L 01/13/20 10:11 Himanshu Test Na 01/13/20 10:11 A-a Gradient 38.0 mmHg 01/13/20 10:11 FiO2 21.0 01/13/20 10:11 Blood Gas Comments Laurie well cb 01/13/20 10:11 Sodium 136 mmol/L (136-145) 01/16/20 05:55 Corrected Sodium TNP 01/16/20 05:55 Potassium 3.3 mmol/L (3.5-5.1) L 01/16/20 05:55 Chloride 100 mmol/L (98-107) 01/16/20 05:55 Carbon Dioxide 27.6 mmol/L (21-32) 01/16/20 05:55 BUN 21 mg/dL (7-18) H 01/16/20 05:55 Creatinine 1.15 mg/dL (0.55-1.02) H 01/16/20 05:55 Est GFR (MDRD) Af Amer 57 (>60) L 01/16/20 05:55 Est GFR (MDRD) Non-Af 47 (>60) L 01/16/20 05:55 Glucose 104 mg/dL (65-99) H 01/16/20 05:55 Calcium 8.8 mg/dL (8.5-10.1) 01/16/20 05:55 Corrected Calcium 9.6 mg/dL (8.5-10.1) 01/16/20 05:55 Magnesium 2.6 mg/dL (1.7-2.9) 01/16/20 05:55 Ferritin 44 ng/mL (8-252) 01/13/20 09:55 Total Bilirubin 0.40 mg/dL (0.2-1.0) 01/16/20 05:55 AST 20 Units/L (15-37) 01/16/20 05:55 ALT 21 Units/L (12-78) 01/16/20 05:55 Alkaline Phosphatase 82 Units/L (46-116) 01/16/20 05:55 Creatine Kinase 62 Units/L (26-192) 01/13/20 23:15 CK-MB (CK-2) 3.5 ng/mL (0-4.0) 01/13/20 23:15 CK/CKMB % Calc 5.7 % (<4) 01/13/20 23:15 Troponin I 0.06 ng/mL (0-1.5) 01/13/20 23:15 C-Reactive Protein 27.90 mg/L (0-3.0) H 01/13/20 09:55 Total Protein 7.0 g/dL (6.4-8.2) 01/16/20 05:55 Albumin 3.0 g/dL (3.4-5.0) L 01/16/20 05:55 Globulin 4.0 g/dL (2.5-4.5) 01/16/20 05:55 Albumin/Globulin Ratio 0.8 Ratio (1.1-2.1) L 01/16/20 05:55 Specimen Type Clean catch urine 01/13/20 11:59 Urine Color Pale yellow (YELLOW) 01/13/20 11:59 Urine Appearance Slightly hazy (CLEAR) 01/13/20 11:59 Urine pH 6.0 (5.0 - 8.0) 01/13/20 11:59 Ur Specific [place] 1.010 (1.000-1.030) 01/13/20 11:59 Urine Protein Negative (NEGATIVE) 01/13/20 11:59 Urine Glucose (UA) Negative (NEGATIVE) 01/13/20 11:59 Urine Ketones Negative (NEGATIVE) 01/13/20 11:59 Urine Occult Blood Negative (NEGATIVE) 01/13/20 11:59 Urine Nitrite Negative (NEGATIVE) 01/13/20 11:59 Urine Bilirubin Negative (NEGATIVE) 01/13/20 11:59 Urine Urobilinogen Normal (NORMAL) 01/13/20 11:59 Ur Leukocyte Esterase 3+ (NEGATIVE) 01/13/20 11:59 Urine RBC 0-2 /HPF (0-3) 01/13/20 11:59 Urine WBC 10-20 /HPF (0-5) A 01/13/20 11:59 Ur Squamous Epith Cells Rare /HPF (NEGATIVE) 01/13/20 11:59 Urine Bacteria Trace /HPF (NEGATIVE) 01/13/20 11:59 Ur Culture Indicated? Yes/culture set up 01/13/20 11:59 SARS-CoV-2 (PCR) Negative (NEGATIVE) 01/13/20 12:20 Plan (1) CHF (congestive heart failure): Status: Acute Qualifiers: Heart failure chronicity: acute on chronic Heart failure type: unspecified Qualified Code(s): I50.9 - Heart failure, unspecified (2) Pulmonary edema: Status: Acute Qualifiers: Chronicity: acute Qualified Code(s): J81.0 - Acute pulmonary edema
[2020-01-16] MEDS: ATIVAN TAB 0.5 MG PO PRN (20:49)
[2020-01-17 06:34] LABS: BASOPHILS # (AUTO) 0.1 X10^3/uL (0.0-0.1); BASOPHILS % (AUTO) 1.4 % (0.2-1.0); EOSINOPHILS # (AUTO) 0.5 x10^3/uL (0.0-0.2); EOSINOPHILS % (AUTO) 8.6 % (0.9-2.9); HEMATOCRIT 38.6 % (36.0-47.0); HEMOGLOBIN 12.6 g/dL (12.0-16.0); LYMPHOCYTES % (AUTO) 32.5 % (21.0-51.0); MEAN CORPUSCULAR HEMOGLOBIN 27.8 pg (27.0-34.0); MEAN CORPUSCULAR HGB CONC 32.5 g/dL (33.0-35.0); MEAN CORPUSCULAR VOLUME 85.7 fL (80.0-100.0); MEAN PLATELET VOLUME 8.2 fL (7.4-11.0); MONOCYTES # (AUTO) 0.7 x10^3/uL (0.3-0.8); MONOCYTES % (AUTO) 11.5 % (0.0-13.0); NEUTROPHILS # (AUTO) 2.9 x10^3/uL (2.2-4.8); PLATELET COUNT 234 X10^3/uL (150.0-450.0); RED BLOOD COUNT 4.51 X10^6/uL (3.5-5.4); RED CELL DISTRIBUTION WIDTH 14.8 % (11.6-16.5); WHITE BLOOD COUNT 6.3 X10^3/uL (3.6-10.0)
[2020-01-17 06:49] LABS: ALANINE AMINOTRANSFERASE 20 Units/L (12-78); ALBUMIN 3.1 g/dL (3.4-5.0); ALKALINE PHOSPHATASE 82 Units/L (46-116); ASPARTATE AMINO TRANSFERASE 20 Units/L (15-37); BLOOD UREA NITROGEN 23 mg/dL (7-18); CALCIUM 9.2 mg/dL (8.5-10.1); CARBON DIOXIDE 29.8 mmol/L (21-32); CHLORIDE 102 mmol/L (98-107); COR CA(FOR HYPOALB) 9.9 mg/dL (8.5-10.1); CREATININE 1.25 mg/dL (0.55-1.02); SODIUM 138 mmol/L (136-145); TOTAL PROTEIN 7.1 g/dL (6.4-8.2); eGFR NON BLACK RACES 43 (>60)
[2020-01-17] MEDS: CORDARONE TAB 200 MG PO SCH (08:44)
[2020-01-17] MEDS: ELIQUIS PO SCH (08:45)
[2020-01-17] MEDS: LASIX PO SCH (08:45)
[2020-01-17] MEDS: LOPRESSOR TAB 25 MG PO SCH (08:45)
[2020-01-17] MEDS: SYNTHROID 50 mcg TAB PO SCH (08:46)
[2020-01-17] MEDS: RHINOCORT ALLERGY NASAL SPRAY ENOSTRIL SCH (08:46)
[2020-01-17 12:42] VITALS: BP 120/56
== END 2020-01-17 13:10 | disposition home health service (06) | DRG 292 ==
LOC: MED/SURG 09:12 → ER 09:12 → MED/SURG 14:51
PROVIDERS: ADMIT Obstetrics & Gynecology Obstetrics; ATTEND Obstetrics & Gynecology Obstetrics
DX: I50.9 Heart failure, unspecified; I25.10 Atherosclerotic heart disease of native coronary artery without angina pectoris; R79.1 Abnormal coagulation profile; E03.8 Other specified hypothyroidism; Z20.828 Contact with and (suspected) exposure to other viral communicable diseases; E78.2 Mixed hyperlipidemia; R06.02 Shortness of breath; I48.91 Unspecified atrial fibrillation; N39.0 Urinary tract infection, site not specified; R94.31 Abnormal electrocardiogram [ECG] [EKG]